=== PATIENT | male | born 1990 | race Caucasian/White ===

== ENCOUNTER → 2018-12-21 | Outpatient (REF) | payer OTHER ==
[2018-12-21 10:40] LABS: CHOLESTEROL LEVEL 149 MG/DL (<200); HDL CHOLESTEROL 39 MG/DL (>40); LDL CHOLESTEROL 100 MG/DL (<100); NON-HDL-C 110 MG/DL; TRIGLYCERIDES LEVEL 49 MG/DL (<150)
[2018-12-21 10:48] LABS: TESTOSTERONE 403 NG/DL (241-827)
[2018-12-21 10:51] LABS: FOLLICLE STIMULATING HORMONE < 0.3 mIU/mL (1.4-18.1); LUTEINIZING HORMONE < 0.1 mIU/mL (1.5-9.3)
== END ==
LOC: M SFHCPLAZ 08:24
PROVIDERS: ATTEND Family Medicine
DX: R68.82 Decreased libido (principal); Z13.1 Encounter for screening for diabetes mellitus; Z13.220 Encounter for screening for lipoid disorders

== ENCOUNTER → 2019-01-25 | Outpatient (CLI) | payer OTHER ==
--- NOTE | 2019-01-25 13:36 | REP ---
Clinical: Lower back pain. Technique: AP, lateral, bilateral oblique and coned-down views of the lumbosacral spine. Findings: Focal moderate degenerative disc osteophyte complex at T12-L1 includes endplate sclerosis with marginal spurring and disc space narrowing. Mild multilevel degenerative changes through the lumbar spine include subtle endplate sclerosis with very early anterior spurring. Alignment and lordosis maintained. There is no acute fracture / compression injury or subluxation. No obvious spondylolysis or spondylolisthesis. Impression: 1. Focal moderate degenerative disc disease at T12-L1. 2. Mild multilevel degenerative changes noted throughout the remainder of the lumbar spine. Electronically Signed by Jori Cai MD 01/25/2019 01:27 P
--- NOTE | 2019-01-25 13:37 | REP ---
Clinical: Lower back pain. Technique: Four views of the sacroiliac joints. Findings: Bilateral sacroiliac joints are symmetric and normal for age. No significant periarticular sclerosis, effusion, erosive changes, or osteophyte formation noted. Impression: Symmetric age-appropriate bilateral sacroiliac joints. Electronically Signed by Jori Cai MD 01/25/2019 01:28 P
== END ==
LOC: M WUC 12:25
PROVIDERS: ATTEND Family Medicine
DX: M51.37 Other intervertebral disc degeneration, lumbosacral region (principal)

== ENCOUNTER → 2019-02-27 | Outpatient (REF) | payer OTHER ==
[2019-02-27 10:41] LABS: C REACTIVE PROTEIN QUANTITATIV < 0.30 MG/DL (0.00-0.30); THYROXINE (T4) 12.7 UG/DL (4.5-12.0)
[2019-02-27 10:45] LABS: LUTEINIZING HORMONE 5.5 mIU/mL (1.5-9.3)
[2019-02-27 10:53] LABS: FOLLICLE STIMULATING HORMONE 7.3 mIU/mL (1.4-18.1); TOTAL T3 128.6 NG/DL (60.0-181.0)
[2019-02-28 14:24] LABS: TESTOSTERONE FREE (DIRECT) 11.3 pg/mL (8.7-25.1)
== END ==
LOC: M SFHCPLAZ 08:14
PROVIDERS: ATTEND Family Medicine
DX: M54.5 Low back pain (principal); E34.9 Endocrine disorder, unspecified

== ENCOUNTER → 2019-08-09 | Outpatient (REF) | payer OTHER ==
[2019-08-09 09:30] LABS: SEMEN APPEARANCE OPAQUE (OPAQUE); SEMEN VISCOSITY LIQUID (LIQUID); SEMEN VOLUME 4.2 ml (2.0-5.0)
[2019-08-09 09:31] LABS: SPERM CONCENTRATION 22.7 M/ml (>=15.0); WBC CONCENTRATION >1 M/ml (<=1 M/ml)
== END ==
LOC: M LAB REF 09:05
PROVIDERS: ATTEND Obstetrics & Gynecology Reproductive Endocrinology
DX: N46.9 Male infertility, unspecified (principal)

== ENCOUNTER → 2020-04-17 | Outpatient (CLI) | payer OTHER ==
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
== END ==
LOC: M WUC 09:22
PROVIDERS: ATTEND Nurse Practitioner Family
DX: M79.644 Pain in right finger(s) (principal)

== ENCOUNTER → 2020-09-16 | Outpatient (CLI) | payer OTHER ==
[2020-09-16 07:46] LABS: HEMATOCRIT 47.4 % (42.0-52.0); HEMOGLOBIN 15.2 g/dl (13.5-17.5); MEAN CORPUSCULAR HEMOGLOBIN 32.5 pg (27.0-33.0); MEAN CORPUSCULAR HGB CONC 32.1 g/dl (32.0-36.5); MEAN CORPUSCULAR VOLUME 101.5 fl (80.0-96.0); PLATELET COUNT, AUTOMATED 151 10^3/uL (150-450); RED BLOOD COUNT 4.67 10^6/uL (4.30-6.10); WHITE BLOOD COUNT 4.2 10^3/uL (4.0-10.0)
[2020-09-16 08:44] LABS: ALT/SGPT 46 U/L (12-78); BILIRUBIN,TOTAL 0.9 MG/DL (0.2-1.0); BLOOD UREA NITROGEN 23 MG/DL (7-18); CALCIUM LEVEL 8.1 MG/DL (8.5-10.1); CARBON DIOXIDE LEVEL 29 MEQ/L (21-32); CHLORIDE LEVEL 108 MEQ/L (98-107); CHOLESTEROL LEVEL 132 MG/DL (<200); CREATININE FOR GFR 1.11 MG/DL (0.70-1.30); GLOMERULAR FILTRATION RATE > 60.0 (>60); GLUCOSE, FASTING 75 MG/DL (70-100); POTASSIUM SERUM 4.6 MEQ/L (3.5-5.1); SODIUM LEVEL 140 MEQ/L (136-145); TRIGLYCERIDES LEVEL 47 MG/DL (<150)
[2020-09-16 08:45] LABS: ALBUMIN 3.5 GM/DL (3.2-5.2); CHOLESTEROL RISK RATIO 2.538 (<5); FREE T4 0.78 NG/DL (0.76-1.46); HDL CHOLESTEROL 52 MG/DL (>40); LDL CHOLESTEROL 71 MG/DL (<100); NON-HDL-C 80 MG/DL; THYROID STIMULATING HORMONE 0.977 uIU/ML (0.358-3.740)
[2020-09-16 10:58] LABS: HEMOGLOBIN A1c 4.7 %
[2020-09-17 21:10] LABS: TESTOSTERONE FREE (DIRECT) 46.8 pg/mL (8.7-25.1); TESTOSTERONE TOTAL FOR T&D > 1500.0 ng/dL (264-916)
== END ==
LOC: M LAB 07:16
PROVIDERS: ATTEND Physician Assistant
DX: Z00.00 Encounter for general adult medical examination without abnormal findings (principal); N46.9 Male infertility, unspecified

== ENCOUNTER → 2020-10-27 | Outpatient (REF) | payer OTHER ==
[2020-10-27 14:40] LABS: FOLLICLE STIMULATING HORMONE < 0.3 mIU/mL (1.4-18.1); LUTEINIZING HORMONE < 0.1 mIU/mL (1.5-9.3)
[2020-10-27 20:42] LABS: AMORPHOUS SEDIMENT SMALL (NEGATIVE); APPEARANCE, URINE CLOUDY (CLEAR); BACTERIA, URINE AUTO NEGATIVE (NEGATIVE); BILIRUBIN, URINE AUTO NEGATIVE (NEGATIVE); BLOOD, URINE BLOOD NEGATIVE (NEGATIVE); COLOR, URINE YELLOW (YELLOW); GLUCOSE, URINE (UA) AUTO NEGATIVE (NEGATIVE); KETONE, URINE AUTO NEGATIVE (NEGATIVE); LEUKOCYTE ESTERASE, URINE AUTO NEGATIVE (NEGATIVE); NITRITE, URINE AUTO NEGATIVE (NEGATIVE); PROTEIN, URINE AUTO NEGATIVE (NEGATIVE); RBC, URINE AUTO 0 /HPF (0-3); SPECIFIC GRAVITY URINE AUTO 1.014 (1.002-1.035); SQUAMOUS EPITHELIAL CELL UR AU 0 /HPF (0-6); UROBILINOGEN, URINE AUTO 0.2 mg/dL (0.0-2.0); WBC, URINE AUTO 1 /HPF (0-3)
== END ==
LOC: M SFHCPLAZ 10:40
PROVIDERS: ATTEND Physician Assistant
DX: R39.15 Urgency of urination (principal); F55.3 Abuse of steroids or hormones; R68.82 Decreased libido

== ENCOUNTER → 2023-02-15 | Outpatient (CLI) | payer BC, OTHER ==
[2023-02-15 10:42] LABS: BASO # 0.1 10^3/uL (0.0-0.2); BASO % 0.7 % (0.0-1.0); EOS # 0.2 10^3/uL (0.0-0.5); EOS % 2.5 % (0.0-3.0); HEMOGLOBIN 17.1 g/dl (13.5-17.5); LYMPH # 1.5 10^3/uL (1.5-5.0); LYMPH % 23.1 % (24.0-44.0); MEAN CORPUSCULAR HEMOGLOBIN 31.9 pg (27.0-33.0); MEAN CORPUSCULAR HGB CONC 32.9 g/dl (32.0-36.5); MONO # 0.5 10^3/uL (0.0-0.8); MONO % 7.9 % (2.0-8.0); NEUTROPHILS # 4.4 10^3/uL (1.5-8.5); NEUTROPHILS % 65.4 % (36.0-66.0); PLATELET COUNT, AUTOMATED 204 10^3/uL (150-450); RED BLOOD COUNT 5.36 10^6/uL (4.30-6.10); WHITE BLOOD COUNT 6.7 10^3/uL (4.0-10.0)
[2023-02-15 11:06] LABS: HEMOGLOBIN A1c 5.1 % (4.0-6.0)
[2023-02-15 11:08] LABS: ALKALINE PHOSPHATASE 67 U/L (46-116); ALT/SGPT 29 U/L (7.0-40); AST/SGOT 18 U/L (<34); BILIRUBIN,TOTAL 0.6 MG/DL (0.3-1.2); BLOOD UREA NITROGEN 20 MG/DL (9-23); CALCIUM LEVEL 8.8 MG/DL (8.5-10.1); CARBON DIOXIDE LEVEL 30 MMOL/L (20-31); CHLORIDE LEVEL 105 MMOL/L (98-107); CHOLESTEROL LEVEL 166 MG/DL (<200); CHOLESTEROL RISK RATIO 4.23 (<5); CREATININE FOR GFR 0.89 MG/DL (0.70-1.30); FOLLICLE STIMULATING HORMONE 0.6 mIU/ML (1.4-18.1); GLOMERULAR FILTRATION RATE > 60.0 (>60); GLUCOSE, FASTING 65 MG/DL (60-100); HDL CHOLESTEROL 39.2 MG/DL (>40); LDL CHOLESTEROL 101.8 MG/DL (<100); NON-HDL-C 126.8 MG/DL; POTASSIUM SERUM 4.6 MMOL/L (3.5-5.1); SODIUM LEVEL 140 MMOL/L (136-145); THYROID STIMULATING HORMONE 1.312 uIU/ML (0.55-4.78); TOTAL PROTEIN 6.9 G/DL (5.7-8.2); TRIGLYCERIDES LEVEL 125 MG/DL (<150)
[2023-02-15 11:09] LABS: LUTEINIZING HORMONE < 0.1 mIU/ML (1.5-9.3)
[2023-02-15 11:10] LABS: FREE T4 1.32 NG/DL (0.89-1.76)
== END ==
LOC: M PLALAB 07:59
PROVIDERS: ATTEND Physician Assistant
DX: R41.840 Attention and concentration deficit (principal); Z76.89 Persons encountering health services in other specified circumstances; Z92.241 Personal history of systemic steroid therapy; Z13.220 Encounter for screening for lipoid disorders
CPT/HCPCS: 36415; 80053; 80061; 82670; 82681; 83001; 83002; 83036; 84402; 84403; 84439; 84443; 85025; G0103

== ENCOUNTER → 2024-09-17 | Outpatient (CLI) | payer BC ==
[2024-09-17 17:59] LABS: HEMATOCRIT 48.7 % (42.0-52.0); HEMOGLOBIN 16.6 g/dl (13.5-17.5); MEAN CORPUSCULAR HEMOGLOBIN 31.5 pg (27.0-33.0); MEAN CORPUSCULAR HGB CONC 34.1 g/dl (32.0-36.5); MEAN CORPUSCULAR VOLUME 92.4 fl (80.0-96.0); PLATELET COUNT, AUTOMATED 207 10^3/uL (150-450); RED BLOOD COUNT 5.27 10^6/uL (4.30-6.10); WHITE BLOOD COUNT 6.9 10^3/uL (4.0-10.0)
[2024-09-17 18:26] LABS: ALKALINE PHOSPHATASE 76 U/L (40-129); ALT/SGPT 40 U/L (7.0-40); AST/SGOT 37 U/L (<34); BILIRUBIN,TOTAL 0.6 MG/DL (0.3-1.2); BLOOD UREA NITROGEN 26 MG/DL (9-23); CALCIUM LEVEL 9.6 MG/DL (8.5-10.1); CARBON DIOXIDE LEVEL 31 MMOL/L (20-31); CHLORIDE LEVEL 103 MMOL/L (98-107); CHOLESTEROL LEVEL 177 MG/DL (<200); CHOLESTEROL RISK RATIO 4.05 (<5); CREATININE FOR GFR 1.05 MG/DL (0.70-1.30); GLOMERULAR FILTRATION RATE > 60.0 (>60); GLUCOSE, FASTING 80 MG/DL (60-100); HDL CHOLESTEROL 43.7 MG/DL (>40); LDL CHOLESTEROL 102.1 MG/DL (<100); NON-HDL-C 133.3 MG/DL; POTASSIUM SERUM 4.6 MMOL/L (3.5-5.1); PSA SCREENING 0.39 NG/ML (< 4.00); SODIUM LEVEL 140 MMOL/L (136-145); TOTAL PROTEIN 7.5 G/DL (5.7-8.2); TRIGLYCERIDES LEVEL 156 MG/DL (<150)
[2024-09-17 18:29] LABS: FREE T4 1.33 NG/DL (0.89-1.76)
[2024-09-17 18:30] LABS: FOLLICLE STIMULATING HORMONE 0.7 mIU/ML (1.4-18.1); LUTEINIZING HORMONE < 0.1 mIU/ML (1.5-9.3); THYROID STIMULATING HORMONE 1.768 uIU/ML (0.55-4.78)
[2024-09-17 18:54] LABS: TESTOSTERONE 2451 NG/DL (241-827)
== END ==
LOC: M LAB 17:30
PROVIDERS: ATTEND Nurse Practitioner Family
DX: F55.3 Abuse of steroids or hormones (principal)

== ENCOUNTER → 2025-05-13 | Outpatient (CLI) | payer BC | LOC: M OUTALCOH 08:09 | PROVIDERS: ATTEND Psychiatry & Neurology Psychiatry | DX: Z03.89 Encounter for observation for other suspected diseases and conditions ruled out (principal) ==